=== PATIENT | female | born 1975 | race American Indian/Alaskan Native ===

== ENCOUNTER 2018-06-19 10:52 | Outpatient (CLI) | payer OTHER ==
--- NOTE | 2018-06-19 16:15 | Mammography Report ---
BILATERAL DIGITAL SCREENING MAMMOGRAM with CAD: 06/19/18 10:52:00 CLINICAL: Routine screening. COMPARISON:04/05/15 FINDINGS: The breasts are heterogeneously dense, which may obscure small masses. No mass, architectural distortion or suspicious calcifications. IMPRESSION: No mammographic evidence of malignancy. BI-RADS CATEGORY: 1 - - Negative RECOMMENDATION: Routine mammographic screening in one year. COMMENT: Patient follow-up letters are generated by our [employer] application.
== END 2018-06-19 10:53 | disposition home or self-care (01) ==
LOC: SPVWC 10:52
PROVIDERS: ATTEND Obstetrics & Gynecology
DX: Z12.31 Encounter for screening mammogram for malignant neoplasm of breast (principal)
CPT/HCPCS: 77067

== ENCOUNTER 2020-07-14 09:57 | Outpatient (CLI) | payer BC ==
--- NOTE | 2020-07-14 12:07 | Ultrasound Report ---
BILATERAL DIGITAL DIAGNOSTIC MAMMOGRAM WITH CAD WITH TOMOSYNTHESIS, 07/14/2020 BILATERAL LIMITED BREAST ULTRASOUND CLINICAL INFORMATION / INDICATION: The patient is palpating areas in the upper outer quadrants of bot h breasts. BILAT DIAG. NODULES TECHNIQUE: Digital bilateral mammographic imaging was performed. Limited ultrasound was performed. Th is examination was interpreted with the benefit of Computer-Aided Detection (CAD) analysis. COMPARISON: Prior outside mammogram 06/19/2018 FINDINGS: Breast Density: The breasts are heterogeneously dense, which may obscure small masses. MAMMOGRAPHIC FINDINGS: No dominant mass, suspicious calcifications, or architectural distortion in ei ther breast. There is no suggestion of breast mass bilaterally and there is no significant interval c hange from prior mammogram. ULTRASOUND FINDINGS: Targeted ultrasound evaluation was performed of the area of interest. Right breast: In the superior aspect of the right breast, corresponding to the palpable area as shown by the patient, there is no evidence for mass, suspicious shadowing, or cyst. Left breast: In the superior aspect of the left breast, corresponding to the palpable area as shown b y the patient, there is no evidence for mass, suspicious shadowing, or cyst. IMPRESSION: No mammographic or sonographic evidence of malignancy. There is no mammographic or sonogr aphic abnormality to correspond to the bilateral palpable lumps. Follow up recommendation: Routine yearly. Additionally please correlate clinically with respect to th e bilateral lumps. BI-RADS Category 2: Benign. A "normal" or negative report should not discourage follow up or biopsy of a clinically significant f inding. A written summary of these findings will be mailed to the patient. The patient will be entered into a mammography reporting system which will generate a reminder letter for the patient's next appointmen t at the appropriate interval. According to the [employer], yearly mammograms are recommended starting at age 40 and continuing as long as a woman is in good health. Breast MRI is recommended for women with an oralia roximately 20-25% or greater lifetime risk of breast cancer, including women with a strong family his tory of breast or ovarian cancer and women who have been treated for Hodgkin's disease. Signer Name: Kaitlynn Covington MD Signed: 07/14/2020 12:02 PM Workstation Name: [id number]
== END 2020-07-14 09:58 | disposition home or self-care (01) ==
LOC: SPVWC 09:57
PROVIDERS: ATTEND Obstetrics & Gynecology
DX: N63.0 Unspecified lump in unspecified breast (principal); R92.8 Other abnormal and inconclusive findings on diagnostic imaging of breast
CPT/HCPCS: 76642; 77066; G0279